=== PATIENT | male | born 1975 | race Caucasian/White ===

== ENCOUNTER → 2021-05-30 | Outpatient (CLI) | payer OTHER ==
--- NOTE | 2021-05-30 10:04 | RAD ---
EXAM: RIGHT UPPER QUADRANT ULTRASOUND. HISTORY: Elevated liver enzymes. COMPARISON: None. FINDINGS: Sonographic evaluation of the right upper quadrant was performed. The liver appears normal in parenchymal echotexture. There are no focal lesions. The gallbladder is unremarkable without evidence of stones, wall thickening or pericholecystic fluid. There is no sonographic Preston sign. The common duct measures 4 mm. Limited images of the visualize d portions of the head of the pancreas reveal no abnormality. The right kidney measures 12.4 cm. Cortical thickness and echogenicity are preserved. There is no hyd ronephrosis. The visualized portions of the abdominal aorta and inferior vena cava are grossly patent and normal i n caliber. IMPRESSION: 1. Limited visualization of the pancreas. Otherwise unremarkable examination of the right upper quadr ant. Electronically signed by: Fausto Draper MD (05/30/2021 10:02 AM) [id number]
== END ==
LOC: US 09:23
PROVIDERS: ATTEND Clinical Nurse Specialist Family Health
DX: R94.5 Abnormal results of liver function studies (principal)
CPT/HCPCS: 76705